=== PATIENT | female | born 1945 | race Caucasian/White ===

== ENCOUNTER 2024-10-29 10:00 | Inpatient (IN) | payer MEDICARE, OTHER ==
[~2024-10-29] VITALS: Ht 154.9 cm; Wt 74.5 kg
[2024-10-30 14:39] VITALS: BP 123/68
[2024-10-30] MEDS ORDERED: BAYER CHEWABLE81 MG PO (14:45)
[2024-10-30] MEDS ORDERED: EPIPEN 2-P0.3 MG/0.3 IM (14:46)
[2024-10-30] MEDS ORDERED: COREG3.125 MG PO (14:47)
[2024-10-30] MEDS ORDERED: MULTI VITAMIN1 EACH PO (14:47)
[2024-10-30] MEDS ORDERED: ATORVASTATIN CA80 MG PO (14:47)
[2024-10-30] MEDS ORDERED: LASIX20 MG PO (14:48)
[2024-10-30] MEDS ORDERED: LEVOTHYROXINE125 MCG PO (14:48)
[2024-10-30] MEDS ORDERED: GABAPENTIN ER600 MG PO (14:48)
[2024-10-30] MEDS ORDERED: OMEPRAZOLE20 MG PO (14:49)
[2024-10-30] MEDS ORDERED: PAXIL10 MG PO (14:49)
[2024-10-30] MEDS ORDERED: ZESTRIL5 MG PO (14:49)
[2024-10-30] MEDS ORDERED: TRIAMTERENE-HC1 EAC1 PO (14:50)
[2024-10-30] MEDS ORDERED: VITAMIN C500 M1 PO (14:50)
[2024-10-30] MEDS ORDERED: POTASSIUM CHLO10 MEQ PO (14:50)
[2024-10-30] MEDS ORDERED: VITAMIN D325 MCG PO (14:51)
[2024-11-03] VITALS (9 sets, daily range): BP systolic 125–153; BP diastolic 64–82
[2024-11-03] MEDS ORDERED: LACTATED RINGER'S 1,000 ML IV SCH (05:00)
[2024-11-03] MEDS ORDERED: MIDAZOLAM HCL 2 MG/2 ML VIAL ONE (05:57)
[2024-11-03] MEDS ORDERED: FAMOTIDINE 20 MG/ 2 ML VIAL ONE (05:57)
[2024-11-03] MEDS ORDERED: propofoL 200 MG/20 ML VIAL ONE (05:57)
[2024-11-03] MEDS ORDERED: fentaNYL citrate 100 MCG/2 ML VIAL ONE (05:57)
[2024-11-03] MEDS ORDERED: LACTATED RINGER'S 1,000 ML IV ONE ×2 (05:57→07:58)
[2024-11-03] MEDS ORDERED: DEXAMETHASONE SOD PHOS 4 MG/ML VIAL ONE (05:57)
[2024-11-03] MEDS ORDERED: KETAMINE in NS 50 MG/5 ML SYR ONE (05:57)
[2024-11-03] MEDS ORDERED: KETOROLAC TROMETHAMINE 30 MG/ML VIAL ONE (05:57)
[2024-11-03] MEDS ORDERED: ondansetron HCL 4 MG/2 ML VIAL ONE (05:57)
[2024-11-03] MEDS ORDERED: METOCLOPRAMIDE HCL 10 MG/2 ML SDV ONE (05:57)
[2024-11-03] MEDS ORDERED: LIDOCAINE HCL 2% 5 ML SDV ONE ×2 (05:59→08:02)
[2024-11-03] MEDS ORDERED: BUPIVACAINE 0.75% IN DEXTROSE 2 ML AMP ONE (05:59)
[2024-11-03] MEDS ORDERED: TRAMADOL HCL 50 MG TAB PO ONE (06:00)
[2024-11-03] MEDS ORDERED: CEFAZOLIN SODIUM 2 GM/20 ML SYR IV SCH ×2 (07:00→15:00)
[2024-11-03] MEDS ORDERED: TRANEXAMIC ACID IN NACL,ISO-OS 1,000 MG/100 ML PIGGYBACK IV SCH ×3 (07:00→18:00)
[2024-11-03] MEDS ORDERED: GABAPENTIN 600 MG TAB PO SCH (07:00)
[2024-11-03] MEDS ORDERED: IBLOOD GLUCOSE TEST STRIP 1 EA TEST VI PRN ×3 (07:00→08:45)
[2024-11-03] MEDS ORDERED: ondansetron HCL 4 MG TAB PO SCH (07:00)
[2024-11-03] MEDS ORDERED: KETOROLAC TROMETHAMINE 30 MG/ML VIAL IV PRN (07:00)
[2024-11-03] MEDS ORDERED: LIDOCAINE HCL 1% 5 ML SDV INJ ONE (07:00)
[2024-11-03] MEDS ORDERED: INTRA-ARTICULAR ANALGESIC INJECTION XX SCH (07:00)
[2024-11-03] MEDS ORDERED: PANTOPRAZOLE SODIUM 40 MG TABEC PO SCH (07:00)
[2024-11-03] MEDS ORDERED: OXYCODONE HCL 5 MG TAB PO SCH (07:00)
[2024-11-03] MEDS ORDERED: TRAMADOL HCL 50 MG TAB PO PRN (07:15)
--- NOTE | 2024-11-03 07:30 | NUR ---
PT NOT AVAILABLE FOR VISIT. PROVIDED PRAYER.
[2024-11-03] MEDS ORDERED: SEVOFLURANE 250 ML BTL ONE (08:22)
[2024-11-03] MEDS ORDERED: ondansetron HCL 4 MG/2 ML VIAL IV PRN ×2 (08:30→08:45)
[2024-11-03] MEDS ORDERED: PROCHLORPERAZINE EDISYLATE 10 MG/2 ML VIAL IV PRN ×2 (08:30→08:45)
[2024-11-03] MEDS ORDERED: NALOXONE HCL 0.4 MG SYR IV PRN ×2 (08:30→08:45)
[2024-11-03] MEDS ORDERED: METOCLOPRAMIDE HCL 10 MG/2 ML SDV IV PRN ×2 (08:30→08:45)
[2024-11-03] MEDS ORDERED: fentaNYL citrate 50 MCG/ML SDV IV PRN ×2 (08:30→08:45)
[2024-11-03] MEDS ORDERED: droPERidol 5 MG/2 ML VIAL IV PRN ×2 (08:30→08:45)
[2024-11-03] MEDS ORDERED: MORPHINE SULFATE 10 MG/ML VIAL IV PRN (08:30)
[2024-11-03] MEDS ORDERED: SCOPOLAMINE 1 MG/3 DAYS PATCH 1 EACH TDSY ONE (08:33)
[2024-11-03] MEDS ORDERED: MEPERIDINE HCL 25 MG/1 ML VIAL IV PRN (08:45)
[2024-11-03] MEDS ORDERED: ATROPINE SULFATE 1 MG/ML VIAL ONE (08:50)
[2024-11-03] MEDS ORDERED: ASPIRIN 325 MG TAB PO SCH (09:00)
[2024-11-03] MEDS ORDERED: CEFUROXIME250 MG PO (09:26)
[2024-11-03] MEDS ORDERED: GABAPENTIN300 MG PO (09:27)
[2024-11-03] MEDS ORDERED: ACETAMINOPHEN500 MG PO (09:27)
[2024-11-03] MEDS ORDERED: ASPIRIN325 MG PO (09:27)
[2024-11-03] MEDS ORDERED: CELECOXIB200 MG PO (09:27)
[2024-11-03] MEDS ORDERED: TRAMADOL HCL50 MG PO (09:27)
--- NOTE | 2024-11-03 09:30 | NUR ---
11/03/24 0930 Lissy Shafer PATIENT ARRIVES IN PACU NEEDING A JAW THRUST FOR ADEQUATE GAS EXCHANGE. JAW THRUST IS HELD BY ME UNTIL 09, THEN SNORING RESPIRATIONS ARE HEARD.
--- NOTE | 2024-11-03 09:56 | NUR ---
PT ARRIVES TO DS UNIT FROM PACU VIA STRETCHER. PT REPORTS NO PAIN AND NO NAUSEA. PT SPINAL AT KNEE LEVEL AND PT ABLE TO SLIGHTLY WIGGLE TOES ON LFT LEG. PT SITTING UP IN BED EATING PUDDING AND CRACKERS, TOLERATING SMALL SIPS OF ICE WATER WITHOUT DIFFICULTY. PT REPORTS NO FURTHER NEEDS OR QUESTIONS AT THIS TIME. REPORT RECEIVED FROM GEORGE ANGUIANO, AT BEDSIDE. CALL LIGHT WITHIN REACH. PT ON >90% VIA PULSE OX, PT DEMONSTRATES GOOD COUGHS. RESPIRATIONS EVEN AND UNLABORED, NO SIGNS OF DISTRESS.
--- NOTE | 2024-11-03 10:48 | OR ---
[facility] [address] [facility] [place], [place] [address] Signed DATE OF OPERATION: 11/03/2024 SURGEON: Crystal Stratton MD PREOPERATIVE DIAGNOSIS: Left hip degenerative joint disease. POSTOPERATIVE DIAGNOSIS: Left hip degenerative joint disease. PROCEDURE PERFORMED: Left total hip arthroplasty with Aldair. TEMPORARY RECEPTIONIST: None. ANESTHESIA: Spinal. BLOOD LOSS: 175 mL. IMPLANTS: Rome Secure-Fit Advanced size 7 stem, 52 mm cup and a +2.5 head, 3 screws were placed as well. BRIEF HISTORY: Ronda is an 79-year-old female with progressive worsening of pain and arthritis in her hip. She had undergone successful right hip and wished to proceed with the left. PROCEDURE IN DETAIL: Once consent was obtained, she was taken to the operating room. After adequate anesthesia, she was placed on the operating table in the right lateral decubitus position. Axillary roll was placed and downside pressure points were well padded. The leg was then prepped and draped in a standard sterile fashion. The three pins for the Aldair computer ray were then placed in the posterior aspect of the iliac crest. Once this was completed, the hip was approached through standard anterior lateral incision, this was carried through skin and subcutaneous tissue. The IT band was divided longitudinally. The vastus lateralis was then divided from the tip of the trochanter distally and elevated subperiosteally. This incision was then extended into the gluteus Electronically Signed By: CRYSTAL STRATTON MD 11/03/24 1048 PATIENT NAME: RONDA NOEL OPERATIVE REPORT DATE OF : 41 REPORT #: [id number] PHYSICIAN: CRYSTAL STRATTON MD PCP: OTHER PCP REPORT IS CONFIDENTIAL AND NOT TO BE RELEASED WITHOUT AUTHORIZATION [facility] [address] [place], [place] [address] Signed and capsule and taken all the way to the superior acetabular rim. This was then peeled off the anterior femur around to the level of the lesser trochanter. A partial capsulectomy was performed due to extensive thickening of the capsule throughout. The leg was then registered with the computer and the hip was dislocated. The femoral neck cut was made one fingerbreadth above the lesser trochanter. The bone was held on the back table. The bony landmarks were then registered with the computer. The robot was brought in and an initial ream was made; however, when we tried to put the cup in, it would not stick very well. She did have extremely poor bone. I then switched to manual reaming and reamed the cup deeper and more posterior. We then switched to a 52 cup, and we were able to get it to stick quite well. Three screws were then placed in the posterior superior quadrant. The acetabular liner was then impacted in position. Attention was turned to the proximal femur. This was opened using the impok cutter, followed by the Jerod awl. It was then sequentially reamed up to a 7 and broached up to a 7, which was found to be quite well fitting. The broach was left in place and initially a +0, then a +2.5 head were placed with good leg lengths and stability. Negative Shuck test. The hip was dislocated and the trial was removed. The final stem was impacted until it reached the same level. The +2.5 head was impacted on a dry trunnion. The hip was reduced, again taken to range of motion, 100 degrees of flexion with 30 of internal-external rotation with no impingement or instability. The wound was then copiously irrigated with Surgiphor and normal saline. The frandy-incisional soft tissues were injected with 80 mL of ropivacaine and Toradol mixture. The capsule was then closed using #2 FiberWire. The vastus and IT bands were closed independently using #2 StrataFix. The subcutaneous tissue with 0-StrataFix and skin with 3-0 StrataFix. The wound was then sealed with LiquiBand and Steri-Strips. The computer ray was removed and those wounds were cleansed and closed with Steri-Strips. The wounds were then dressed with Acticoat-7 dressings, and she was awakened and taken to the recovery room in satisfactory condition. All sponge, needle, and instrument counts correct. Crystal Stratton MD BA/MODL /[id number] Electronically Signed By: CRYSTAL STRATTON MD 11/03/24 1048 PATIENT NAME: RONDA NOEL OPERATIVE REPORT DATE OF : 41 REPORT #: [id number] PHYSICIAN: CRYSTAL STRATTON MD PCP: OTHER PCP REPORT IS CONFIDENTIAL AND NOT TO BE RELEASED WITHOUT AUTHORIZATION [address] [address] Signed Copies: ~ Electronically Signed By: CRYSTAL STRATTON MD 11/03/24 1048 PATIENT NAME: FRANCISCO JAVIER NOELVANDANA DIETZIE OPERATIVE REPORT DATE OF : 41 REPORT #: [id number] PHYSICIAN: CRYSTAL STRATTON MD PCP: OTHER PCP REPORT IS CONFIDENTIAL AND NOT TO BE RELEASED WITHOUT AUTHORIZATION
--- NOTE | 2024-11-03 11:10 | NUR ---
IN PT ROOM FOR VS AND ASSESSMENT. NO ACUTE CHANGES FROM PREVIOUS ASSESSMENT. PT REPORTS NO PAIN OR NAUSEA AT THIS TIME. PT ABLE TO MOVE LEGS AND WIGGLE TOES WITHOUT DIFFICULTY, SPINAL TO TOP OF FOOT AT THIS TIME. SANDWICH PROVIDED FOR LUNCH, HOB INCREASED TO 45 DEGREES. CALL LIGHT WITHIN REACH, AT BEDSIDE, PT REPORTS NO FURTHER NEEDS OR QUESTIONS AT THIS TIME.
--- NOTE | 2024-11-03 11:45 | NUR ---
FABIANO AND STUDENT W/PHYSICAL THERAPY IN ROOM W/PT AT THIS TIME.
--- NOTE | 2024-11-03 12:04 | NUR ---
PT HAD INCONTINENCE EPISODE OF LARGE AMOUNT IN BED. PT UNABLE TO URINE VOID ON TOILET AT THIS TIME. NEW GOWN IN PLACE, FULL BED CHANGE PERFORMED.
--- NOTE | 2024-11-03 12:40 | NUR ---
PT BACK FROM PHYSICAL THERAPY. MODERATE SIZED HEMATOMA ON LFT HIP AND MODERATE AMOUNT OF SATURATION TO SURGICAL DRESSING AT THIS TIME VISUALIZED. SANTIAGO FISHER CALLED AND UPDATED, VO FOR SPICA DRESSING AND ABD PADS RECEIVED. PT PASSED FIRST PART OF PHYSICAL THERAPY AND ABLE TO STAND WHILE THIS RN AND YUE RN PLACE SPICA DRESSING. PT HAD STEADY GAIT AND NO PAIN THROUGHOUT PROCESS. PT BACK IN BED W/CRYO CUFF, HEEL PROTECTORS, FOOT PUMPS, AND KELLY HOSE IN PLACE. CALL LIGHT WITHIN REACH. PHYSICAL THERAPY TO PERFORM SECOND PART OF PHYSICAL THERAPY W/TRUCK TRANSFER.
--- NOTE | 2024-11-03 13:25 | NUR ---
IN PT ROOM FOR VS AND ASSESSMENT POST PHYSICAL THERAPY. PT REPORTS NO PAIN OR NAUSEA. SPICA DRESSING IN PLACE AND NO VISIBLE SIGNS OF BLEEDING THROUGH DRESSING AT THIS TIME. PT STATES NO URGE TO URINE VOID AND NO FEELING OF SENSATION OF FULL BLADDER. BLADDER PHYSICALLY PALPABLE W/PROBE AT THIS TIME. BS SHOWS HIGHEST VOLUME OF 530 ML IN PT BLADDER. SANTIAGO FISHER CALLED AND UPATED, VO FOR STRAIGHT CATH OF PT AT THIS TIME. PT UPDATED ON PLAN OF CARE AND AGREEABLE AT THIS TIME. CALL LIGHT WITHIN REACH.
--- NOTE | 2024-11-03 13:40 | NUR ---
PT STATES URGE TO URINE VOID AT THIS TIME. PT MISSED HAT W/SMALL AMOUNT OF URINE OUTPUT AND SHE STATES SHE DOES NOT FEEL LIKE SHE WENT VERY MUCH. PT REPORTS PAIN IS STARTING TO INCREASE AT THIS TIME. GAIT REMAINS STEADY, BUT PT MOVING SLOWER AT THIS TIME. PT BACK IN BED AND BLADDER SCAN PERFORMED AT THIS TIME. BLADDER SCAN PERFORMED, AND VOLUME REMAINS >500 ML, BLADDER IS PALPABLE. STRAIGHT CATH PERFORMED BY LEWIS ANGUIANO, STERILITY MAINTAINED, 400 ML DRAINED FROM BLADDER AT THIS TIME. CALL LIGHT WITHIN REACH, AT BEDSIDE.
[2024-11-03] MEDS ORDERED: LIDOCAINE 2% VISCOUS 6 ML SYR TOP ONE (13:45)
--- NOTE | 2024-11-03 14:20 | NUR ---
IN PT ROOM FOR PAIN ENVIRONMENTAL AIDE. PT REPORTS PAIN 5/10 TO LATERAL AND MEDIAL ASPECT OF THIGH AND DESCRIBES IT CONSTANT. SCHEDULED TYLENOL AND GABAPENTIN GIVEN, ALONG W/PRN TRAMADOL. ANCEF GIVEN VIA IV. PT DRINKING ICE WATER WITHOUT DIFFICULTY. COFFEE PROVIDED TO PT AND PT , NEW CHAIR PROVIDED TO PT FOR COMFORT. BOTH PT AND STATE NO FURTHER NEEDS OR QUESTIONS AT THIS TIME. CALL LIGHT WITHIN REACH.
[2024-11-03] MEDS ORDERED: ACETAMINOPHEN 500 MG TAB PO SCH (15:00)
[2024-11-03] MEDS ORDERED: GABAPENTIN 300 MG CAP PO SCH (15:00)
--- NOTE | 2024-11-03 15:30 | NUR ---
IN PT ROOM TO REFILL WATER. PT STATES NO NEED TO URINE VOID AT THIS TIME. CALL LIGHT WITHIN REACH. AT BEDSIDE.
--- NOTE | 2024-11-03 16:40 | NUR ---
PT CONTINUES TO BE UNABLE TO URINE VOID. IN ROOM FOR VS AND ASSESSMENT. SPICA DRESSING REMAINS IN PLACE, NO NEW SIGNS OF BLEEDING THROUGH THIS DRESSING. DEPENDS IN PLACE, DRY. BLADDER SCAN VOLUME OF 286 ML. PT STATES SHE CONTINUES TO FEEL NO URGE AT THIS TIME. PAIN IS TOLERABLE AT 2/10 IN INFERIOR OF LFT HIP. SANTIAGO FISHER CALLED AND UPDATED. VO TO HOLD ASPIRIN TONIGHT, GIVE 2 GM OF TXA, AND TRANSFER PT TO MS FLOOR FOR EXTENDED RECOVERY. PT UPDATED AND AGREEABLE TO PLAN OF CARE. PT STATES NO FURTHER NEEDS OR QUESTIONS AT THIS TIME.
[2024-11-03] MEDS ORDERED: TRANEXAMIC ACID 2,000 MG in SODIUM CHLORIDE 0.9% 100 ML IV ONE (17:15)
--- NOTE | 2024-11-03 17:27 | NUR ---
PATIENT TO MED SURG VIA GURNEY. PATIENT WAS ABLE TO TRANSFER SELF TO [facility] VIA 1PA. SPIKA DRESSING IS IN PLACE. PATIENT IS ON ROOM AIR FOR 90-92%. HOME CPAP IS IN ROOM AND RT CALLED TO SET UP FOR PATIENT. REGULAR DINNER ORDERED FOR PATIENT. VITALS ARE STABLE. ICE IS PRESENT IN CRYO CUFF. PATIENT DENIES NEED TO VOID AT THIS TIME. PATIENT RATES PAIN 2/10 AND DENIES NEED FOR MEDICATIONS AT THIS TIME.
--- NOTE | 2024-11-03 18:05 | NUR ---
REPORT RECEIVED FROM ANNMARIE CHIN. IN TO INTRODUCE SELF AND CHECK ON PT. UPON INSPECTING HIP IT WAS FOUND TO BE SEEPING BLOOD. CHANGED GOWN AND REINFORCED WITH TOWEL UNTIL TALKING TO DR. CALLED, HE ORDERED SPICA DRESSING CHANGE AND ADMINISTERED TRANSX. HUNG BAGS WHILE ANNMARIE CHIN OBTAINED SUPPLIES. CHANGED DRESSING WO DIFFICULTY. ALL FOUR ABD WERE SATURATED. PT TOLERATED WELL. BACK TO BED WITH CRYO, FOOT PUMPS ETC IN PLACE. CALL LIGHT IN PLACE.
[2024-11-03] MEDS ORDERED: ONDANSETRON 4 MG TAB ODT SL PRN (19:15)
--- NOTE | 2024-11-03 19:20 | NUR ---
PER RN SCAN THE BLADDER AND SHOWED 218ML. RN NOTIFIED.
--- NOTE | 2024-11-03 19:45 | NUR ---
REPORT RECEIVED FROM CLIFF ANGUIANO. pt RESTING IN THE BED. pt BLADDER SCANNED WITH A RESULTS OF 218 mL. pt EDUCATED TO LET US KNOW IF SHE FEELS LIKE SHE HAS TO GO TO THE BR. pt DENIES ANY OTHER NEEDS AT THIS TIME. CALL LIGHT WITHIN REACH.
[2024-11-03] MEDS ORDERED: SENNOSIDES 1 TAB PO SCH (21:00)
[2024-11-03] MEDS ORDERED: carvediloL 3.125 MG TAB PO ONE (21:00)
--- NOTE | 2024-11-03 21:00 | NUR ---
ASSESSMENT AND VS DONE. pt NEEDED DUE TO VOID. THIS RN AND JACOBO BRANDT ASSISTED pt UP TO THE BSC WITH FWW. pt ABLE TO VOID. PRN AND SCHEDULED MEDS ADMINISTERED. pt BACK TO BED. SCD'S ON. KELLY HOSE ON. CRYO CUFF FILLED WITH ICE. pt C/O 5/10 PAIN. DRESSING ON HIP IS CDI. WATER REFRESHED. pt DENIES ANY OTHER NEEDS AT THIS TIME. CALL LIGHT WITHIN REACH.
[2024-11-03] MEDS ORDERED: PROCHLORPERAZINE MALEATE 10 MG TAB PO PRN (21:30)
--- NOTE | 2024-11-03 23:35 | NUR ---
pt C/O 04/30 PAIN AND NAUSEA. PRN PAIN AND ANTINAUSEA MEDS ADMINISTERED. pt DENIES ANY OTHER NEEDS AT THIS TIME. CALL LIGHT WITHIN REACH. pt RESPOSITIONED IN THE BED AND TOWELS PLACED UNDER pt ANKLES TO FLOAT HEELS.
[2024-11-04] VITALS (11 sets, daily range): BP systolic 111–137; BP diastolic 42–89
--- NOTE | 2024-11-04 02:38 | NUR ---
pt RESTING IN THE BED. DRESSING CDI. CRYO CUFF FILLED WITH ICE. SCD'S ON. KELLY HOSE ON. CPAP ON. WATER REFRESHED. pt DENIES ANY OTHER NEEDS AT THIS TIME. CALL LIGHT WITHIN REACH. VITAL SIGNS AND ASSESSMENT DONE.
--- NOTE | 2024-11-04 04:37 | NUR ---
IN TO CHECK ON pt AFTER THIS RN WAS CALLED INTO BY POOJA RN FOR ASSISTANCE. POOJA RN INFORMED THIS RN THAT pt HAD SMALL AMOUNT OF BRIGHT RED BLOOD ON THE FLOOR WHEN GETTING UP TO THE BSC. AND WHEN THIS RN LOOKED AT THE DRESSING 1 ABD PAD WAS SATURATED AND ANOTHER ONE WAS 50% SATURATED. SPIKA DRESSING STILL INTACT.
--- NOTE | 2024-11-04 05:57 | NUR ---
CALL PLACED TO MD ABOUT pt BLEEDING THROUGH 2 ABD PADS AND THE SPIKA DRESSING, THIS RN REINFORCED THE DRESSING WITH AN ABD PAD. NEW ORDERS GIVEN AND VERIFIED WITH REPEAT BACK METHOD.
[2024-11-04] MEDS ORDERED: TRANEXAMIC ACID 2,000 MG in SODIUM CHLORIDE 0.9% 100 ML IV ONE (06:00)
[2024-11-04 06:06] LABS: BASOPHILS 0.1 % (0-2); HEMATOCRIT 16.9 % (35.0-50.0); LYMPHOCYTES 15.3 % (24-44); MCH 33.6 (27-36); MCHC 35.1 g/dl (30-36); MCV 95.9 fl (81-99); MONOCYTES 9.5 % (0-12); NEUTROPHILS 75.1 % (39-80); PLATELET COUNT 249 K/uL (140-440); RBC 1.76 M/ul (4.3-5.7)
[2024-11-04 06:11] LABS: HEMOGLOBIN 5.9 g/dL (12.0-18.0)
--- NOTE | 2024-11-04 06:14 | NUR ---
CALL PLACED TO ABOUT pt CRITICAL LAB HGB 5.9. MD PLACED NEW ORDER FOR TYPE AND SCREEN WITH CROSS MATCH. VERIFIED WITH REPEAT BACK METHOD.
[2024-11-04 06:24] LABS: SMEAR REVIEW BLOOD SEE COMMENTS
[2024-11-04] MEDS ORDERED: TRANEXAMIC ACID IN NACL,ISO-OS 1,000 MG/100 ML PIGGYBACK IV SCH ×2 (06:30→07:00)
[2024-11-04 07:09] LABS: ABO A; ANTIBODY SCREEN NEGATIVE; IS CROSSMATCH COMPATIBLE; RH POSITIVE
[2024-11-04 07:09] LABS: ABO A; RH POSITIVE
--- NOTE | 2024-11-04 07:17 | NUR ---
REPORT FROM ANNMARIE MAI. DR. HENDERSON IS HERE TO SEE PATIENT. PATIENT TO HAVE CBC BEFORE BLOOD INFUSION.
[2024-11-04 07:31] LABS: BASOPHILS 0.3 % (0-2); HEMATOCRIT 17.4 % (35.0-50.0); LYMPHOCYTES 16.4 % (24-44); MCH 32.5 (27-36); MCHC 33.6 g/dl (30-36); MCV 96.6 fl (81-99); NEUTROPHILS 73.3 % (39-80); PLATELET COUNT 274 K/uL (140-440); RDW 12.8 (10.5-15.0)
[2024-11-04 07:34] LABS: HEMOGLOBIN 5.8 g/dL (12.0-18.0)
--- NOTE | 2024-11-04 07:34 | NUR ---
UR CLINICAL REVIEW: 2 MN FOR VERSALUS-MEETS INPT CRITERIA FOR POST OP COMPLICATION MEDICARE ORDER MATCHES REG NO AUTH REQUIRED PER MEDICARE GUIDELINES DISCHARGE NEEDS PENDING FURTHER EVALUATION
[2024-11-04 07:43] LABS: INR 1.05 (0.80-1.30); PROTIME 13.6 Sec (11.2-14.2)
--- NOTE | 2024-11-04 07:59 | NUR ---
PATIENT IN BED AT THIS TIME. PROFESSIONAL HOUSING CONSULTANT WENT INTO PATIENTS ROOM FOR HOURLY ROUNDS AND TO PLACED PUREWICK AT RN ELSY REQUEST. PROFESSIONAL HOUSING CONSULTANT PLACED PUREWCIK @ 4836. CALL LIGHT WITHIN REACH, NO FURTHER NEEDS A THIS TIME.
[2024-11-04] MEDS ORDERED: CELECOXIB 200 MG CAP PO SCH (08:00)
--- NOTE | 2024-11-04 08:16 | NUR ---
MORNING ASSESSMENT IS COMPLETE. NO BLEEDING TO LEFT HIP SPIKA DRESSING. PATIENT IS ON STRICT BED REST TODAY, PUREWICK IN PLACE. PATIENT IS WEARING HER CPAP, O2 SATS ARE 96%. VSS, PULSE IS 88. PATIENT GIVEN 8MG OF ZOFRAN ODT FOR NAUSEA. KELLY HOSE AND SCDS ARE ON, EXTREMITIES ARE WARM. PATIENT IS NPO AT THIS TIME, IS CASE SURGERY IS NEEDED. FIRST UNIT OF BLOOD STARTED AT 0800, NO S/S OF INFUSION REACTION. IS IN ROOM WITH PATIENT. PATIENT IS RESTING COMFORTABLE IN BED, RATES LEFT HIP PAIN 1/10 AND DOES NOT REQUEST PAIN MEDICATIONS.
[2024-11-04] MEDS ORDERED: cefuroxime axetiL 250 MG TAB PO SCH (09:00)
[2024-11-04] MEDS ORDERED: GABAPENTIN300 MG PO (09:14)
--- NOTE | 2024-11-04 09:16 | NUR ---
MED REC COMPLETE
--- NOTE | 2024-11-04 09:21 | NUR ---
PATIENT IS DOING WELL WITH BLOOD TRANSFUSION, NO REACTIONS NOTED.
--- NOTE | 2024-11-04 09:49 | NUR ---
ABD'S REMOVED FROM LEFT HIP SPIKA 1.5 ABD'S WERE SATURATED. 3 NEW ABD'S PLACED UNDER SPIKA DRESSING. CALL TO DR. HENDERSON
[2024-11-04] MEDS ORDERED: PANTOPRAZOLE SODIUM 40 MG TABEC PO SCH (10:00)
[2024-11-04] MEDS ORDERED: CEFAZOLIN SODIUM 2 GM/20 ML SYR IV SCH (10:00)
[2024-11-04] MEDS ORDERED: carvediloL 3.125 MG TAB PO SCH (10:00)
[2024-11-04] MEDS ORDERED: LEVOTHYROXINE SODIUM 125 MCG TAB PO SCH (10:00)
--- NOTE | 2024-11-04 10:14 | NUR ---
PT NOT AVAILABLE FOR VISIT. PROVIDED PRAYER.
--- NOTE | 2024-11-04 10:27 | NUR ---
IN ROOM TO SPEAK WITH PATIENT AND SPOUSE. SHE IS ALERT AND ORIENTED, BLOOD TRANSFUSION GOING AT THIS TIME. PATIENT LIVES IN HOUSE WITH , CHARLINE. PATIENT STATES MAIN LEVEL OF HOME HAS EVERYTHING THEY NEED, NO NEED TO USE STAIRS. PATIENT HAS A WALKER, CANE, SHOWER CHAIR, CPAP. UNSURE WHICH MEDICAL COMPAY PROVIDES CPAP, THINKS [place]. PATIENT RARELY DRIVES, SPOUSE ASSISTS WITH TRANSPORTATION. PATIENT AND SPOUSE DENY ISSUES WITH PAYING UTILITIES. THEY ARE ABLE TO OBTAIN FOOD AND MEDICATION WITHOUT ISSUES. CURRENTLY DO NOT HAVE ANY CM NEEDS AT HOME AT THIS TIME. WILL RETURN TO SPEAK WITH PATIENT AGAIN REGARDING DC PLANS.
--- NOTE | 2024-11-04 10:28 | NUR ---
PATIENT IN BED AT THIS TIME. INJECTION MOLDING OPERATOR CHARTED VITALS AND I&O'S. CALL LIGHT WITHIN REACH, NO FURTHER NEEDS AT THIS TIME.
--- NOTE | 2024-11-04 10:35 | NUR ---
PATIENT IS RESTING IN BED, PATIENT RATES LEFT HIP PAIN LOW 1/10 WITH NO ACTIVITY. PATIENT IS TOLERATING BLOOD TRANSFUSION WELL, SECOND UNIT IS TRANSFUSING AT THIS TIME. VITALS ARE STABLE, PULSE REMAINS IN THE MID 80'S
--- NOTE | 2024-11-04 11:57 | NUR ---
BLOOD INFUSION IS COMPLETE. LEFT HIP DRAINAGE CHECKED, SMALL AMOUNT OF BLOOD HAS LEAKED FROM UNDER DRESSING, 2"X2" IN TWO AREAS
--- NOTE | 2024-11-04 12:08 | NUR ---
ADMINISTERED ANCEF AND COREG WITH TINY SIP OF WATER. PT TOLERATED WELL. DENIES NEEDS ATT.
--- NOTE | 2024-11-04 13:04 | NUR ---
CALL FROM DR. HENDERSON, WE WILL DO 3PM LABS, CHECK BLEEDING TO LEFT HIP, CALL HIM WITH UPDATES.
--- NOTE | 2024-11-04 13:36 | NUR ---
PATIENT IN BED AT THIS TIME. BACK OFFICE MEDICAL ASSISTANT CHARTED VITALS AND I&O'S. CALL LIGHT WITHIN REACH, NO FURTHER NEEDS AT THIS TIME.
[2024-11-04 15:18] LABS: BASOPHILS 0.3 % (0-2); EOSINOPHILS 0.1 % (0-6); HEMATOCRIT 24.5 % (35.0-50.0); HEMOGLOBIN 8.6 g/dL (12.0-18.0); LYMPHOCYTES 12.6 % (24-44); MCH 31.8 (27-36); MCHC 35.2 g/dl (30-36); MCV 90.3 fl (81-99); MONOCYTES 10.4 % (0-12); NEUTROPHILS 76.6 % (39-80); PLATELET COUNT 241 K/uL (140-440); RBC 2.71 M/ul (4.3-5.7); RDW 15.7 (10.5-15.0)
--- NOTE | 2024-11-04 15:48 | NUR ---
CALL TO DR. HENDERSON WITH H/H RESULTS. PATIENT MAY HAVE REGULAR DIET FOR DINNER. MORNING LABS ORDERED: CBC, CMP. DR. HENDERSON WILL SEE PATIENT THIS EVENING.
--- NOTE | 2024-11-04 17:27 | NUR ---
PATIENT IS SITTING UP IN BED AND VISITING WITH FRIEND. PAIN IS 1/10, SCHEDULED MEDICATIONS GIVEN.
--- NOTE | 2024-11-04 18:54 | NUR ---
CALL TO DR. HENDERSON FOR MECLAZINE ORDER. UPDATED ADDITIONAL ABD PLACED UNDER SPIKA AFTER ROLLING PATIENT.
--- NOTE | 2024-11-04 18:58 | NUR ---
PATIENT IN BED AT THIS TIME. SUPERVISOR CLEANING AND ANNEALING CHARTED VITALS AND I&O'S. 2 CNAS AND 2 RNS IN ROOM AT THIS TME. RN PLACED PATIENTS NEW PUREWICK AND SUPERVISOR CLEANING AND ANNEALING PROVIDED NEW BRIEF. CALL LIGHT WITHIN REACH, NO FURTHER NEEDS AT THIS TIME.
--- NOTE | 2024-11-04 19:15 | NUR ---
REPORT RECEIVED FROM ELSY ANGUIANO. pt RESTING IN THE BED. BOARD UPDATED. pt DENIES ANY OTHER NEEDS AT THIS TIME. CALL LIGHT WITHIN REACH.
[2024-11-04] MEDS ORDERED: MECLIZINE HCL 25 MG TAB PO SCH (21:00)
[2024-11-04] MEDS ORDERED: PARoxetine HCL 10 MG TAB PO SCH (21:00)
[2024-11-04] MEDS ORDERED: ATORVASTATIN 40 MG TAB PO SCH (21:00)
--- NOTE | 2024-11-04 21:15 | NUR ---
ASSESSMENT AND VITAL SIGNS DONE. pt LINNEN WAS CHANGED. LEFT HIP ABD PAD SATURTED WITH OLD DRAINAGE. NO NEW DRAINGE AT THIS TIME. DRESSING REINFORCED. CPAP ON. pt DENIES ANY OTHER NEEDS AT THIS TIME. SCD'S ON. KELLY HOSE ON. CALL LIGHT WITHIN REACH.
[2024-11-05] VITALS (8 sets, daily range): BP systolic 100–126; BP diastolic 32–49
--- NOTE | 2024-11-05 00:11 | NUR ---
pt RESTING IN THE BED WITH EYES CLOSED. RR EVEN AND UNLABORED. CALL LIGHT WITHIN REACH.
--- NOTE | 2024-11-05 01:55 | NUR ---
PER RN PATIENT'S BLADDER SCANNED. 513ML IN. RN NOTIFIED.
--- NOTE | 2024-11-05 02:00 | NUR ---
IN RM TO ASSESS pt. pt HAS SMALL AMOUNT OF BLOOD ON THE DRESSING. pt BLADDER SCANNED WITH A RESULTS OF 513 mL. pt ENCOURAGED TO TRY AND PEE. pt DENIES ANY OTHER NEEDS AT THIS TIME. CALL LIGHT WITHIN REACH.
--- NOTE | 2024-11-05 02:51 | NUR ---
IN RM TO CHECK IF pt WAS ABLE TO PEE. pt PEED 200 mL IN THE PURE/WICK CANISTER. NO OTHER NEEDS AT THIS TIME. CALL LIGHT WITHIN REACH.
--- NOTE | 2024-11-05 04:10 | NUR ---
pt RESTING IN THE BED WITH EYES CLOSED. RR EVEN AND UNLABORED. CALL LIGHT WITHIN REACH. CPAP ON. CRYO CUFF ON. SCD'S ON. KELLY HOSE ON.
[2024-11-05 05:37] LABS: BASOPHILS 0.5 % (0-2); EOSINOPHILS 0.2 % (0-6); HEMATOCRIT 19.1 % (35.0-50.0); HEMOGLOBIN 6.7 g/dL (12.0-18.0); LYMPHOCYTES 22.8 % (24-44); MCHC 34.9 g/dl (30-36); MCV 91.4 fl (81-99); MONOCYTES 15.1 % (0-12); NEUTROPHILS 61.4 % (39-80); PLATELET COUNT 198 K/uL (140-440); RBC 2.09 M/ul (4.3-5.7); RDW 15.4 (10.5-15.0)
[2024-11-05 05:51] LABS: SMEAR REVIEW BLOOD SEE COMMENTS
[2024-11-05 05:54] LABS: ALBUMIN 2.5 g/dL (3.4-5.0); ANION GAP 8.1 (7-21); BILIRUBIN, TOTAL 0.5 ng/dL (0.2-1.0); CALCIUM 7.9 mg/dL (8.5-10.1); POTASSIUM 4.1 mmol/L (3.5-5.1)
--- NOTE | 2024-11-05 06:26 | NUR ---
NEW PURE WICK PLACED. CRYO CUFFED FILLED. NO NEW DRAINAGE ON DRESSING. SCDS ON. KELLY HOSE ON. pt DENIES ANY OTHER NEEDS AT THIS TIME. CALL LIGHT WITHIN REACH.
[2024-11-05 08:07] LABS: IS CROSSMATCH COMPATIBLE
[2024-11-05] MEDS ORDERED: POTASSIUM CHLORIDE 10 MEQ TABCR PO SCH (09:00)
[2024-11-05] MEDS ORDERED: lisinopriL 5 MG TAB PO SCH (09:00)
[2024-11-05] MEDS ORDERED: CHOLECALCIFEROL 1,000 UNIT TAB PO SCH (09:00)
[2024-11-05] MEDS ORDERED: ASCORBIC ACID 500 MG TAB PO SCH (09:00)
[2024-11-05] MEDS ORDERED: MULTIVITAMINS THERAPEUTIC 1 EA TAB PO SCH (09:00)
[2024-11-05] MEDS ORDERED: TRIAMTERENE/HCTZ 37.5/25 1 EA TAB PO SCH (09:00)
[2024-11-05] MEDS ORDERED: FUROSEMIDE 20 MG TAB PO SCH (09:00)
--- NOTE | 2024-11-05 09:29 | NUR ---
DR HENDERSON IN CHANGING PT'S DRESSING. DR HENDERSON ORDERS ASPIRIN TO BE HELD AT THIS TIME.
--- NOTE | 2024-11-05 10:03 | NUR ---
STOOD PT AT BEDSIDE, DID A QUICK BEDBATH, APPLIED SPICA DRESSING WO DIFFUCULTY. PT WAS EXCITED TO BE STANDING BRIEFLY. STATES SHE CAN'T BELIEVE SHE ISN'T HAVING MUCH PAIN. CHANGED BEDDING. 1ST UNIT BLOOD INFUSING WNL. VS STABLE.
--- NOTE | 2024-11-05 11:24 | NUR ---
PATIENT ALERT AND ORIENTED IN BED. CURRENTLY HAS BLOOD PRODUCTS TRANSFUSING. DISCUSSED WITH PATIENT SHE REMAINS ON BEDREST AT THIS TIME. INFORMED HER THAT ONCE SHE IS CLEARED TO WORK WITH PT, CASE MANAGEMENT WILL BETTER KNOW WHAT HER DC NEEDS ARE. SHE CAN NOT THINK OF ANY AT THIS TIME. WILL RETURN TOMORROW TO REVIEW DC NEEDS WITH PATIENT.
--- NOTE | 2024-11-05 11:57 | NUR ---
STARTED SECOND UNIT OF BLOOD TODAY. PT TOLERATING WELL. VS STABLE. IV WNL.
--- NOTE | 2024-11-05 12:06 | NUR ---
Charlie on bed changed. Purewick removed, patient is now able to get up to the commode. RNs Delmi and Alanis in room. Cryo cuff refilled with ice and applied to patient's left hip.
--- NOTE | 2024-11-05 12:26 | NUR ---
PT RESTING IN BED, JUST FINISHED LUNCH. COMPANY AT BEDSIDE. BLOOD INFUSING WITHOUT DIFFICULTY. PT HAS NO REQUESTS OR COMPLAINTS AT THIS TIME. CALL LIGHT WITHIN REACH.
--- NOTE | 2024-11-05 13:49 | NUR ---
PT SECOND UNIT COMPLETE. PT TOLERATED WELL. VS STABLE. WOULD LIKE TO NAP NOW. CALL LIGHT IN REACH.
--- NOTE | 2024-11-05 13:54 | NUR ---
ANNMARIE Awad in room finishing blood transfusion. Patient requested to not be disturbed so they could rest.
--- NOTE | 2024-11-05 15:01 | NUR ---
PT UP TO USE THE BEDSIDE COMMODE, TOLERATED WELL. DRSG TO L) HIP CDI. SCDS ON, CRYOCUFF ON, PT DENIES PAIN AT THIS TIME. CALL LIGHT WITHIN REACH, NO OTHER REQUESTS AT THIS TIME.
--- NOTE | 2024-11-05 18:09 | NUR ---
PT RESTING IN BED WATCHING TV, JUST FINISHED DINNER. PT'S WATER REFRESHED. NO OTHER REQUESTS AT THIS TIME. CALL LIGHT WITHIN REACH.
--- NOTE | 2024-11-05 19:31 | NUR ---
REPORT RECEIVED FROM ANNMARIE SOLORZANO. pt RESTING IN BED AWAKE. REPOSITIOND HIGHER IN BED. CRYO CUFF REFILLED WITH ICE AND IN PLACE. pt DENIES PAIN. CALL LIGHT IN REACH.
--- NOTE | 2024-11-05 20:19 | NUR ---
PHONE CALL TO MD, TELEPHONE ORDER RECEIVED FOR AM CBC. ORDER REPEATED BACK TO VERIFY AND UPDATED.
--- NOTE | 2024-11-05 20:57 | NUR ---
IN ROOM FOR VS, ASSESSMENT COMPLETE. DRESSING CDI ON LEFT HIP, NO DRAINAGE NOTED ON SPICA DRESSING. 1PA WITH FWW TO BSC FOR VOID AND SMALL FORMED BM. BACK TO BED, KELLY BRIGGS, VFPS ON, CRYO TO LEFT HIP. HOME CPAP PROVIDED. pt DENIES PAIN. CALL LIGHT AND PERSONAL SUPPLIES IN REACH. IV SL WNL.
[2024-11-06] VITALS (7 sets, daily range): BP systolic 103–119; BP diastolic 32–42
--- NOTE | 2024-11-06 00:01 | NUR ---
CHECKED ON pt. RESTING IN BED WITH EYES CLOSED, BREATHING EQUAL AND UNLABORED. NO DISTRESS NOTED.
--- NOTE | 2024-11-06 02:40 | NUR ---
pt SLEEPING, AWAKENS TO VOICE FOR ANTIBIOTIC ADMINISTRATION. CRYO CUFF REFILLED WITH ICE AND IN PLACE. DRESSING CDI ON LEFT HIP. CRYO IN PLACE. CSM INTACT BLE. HOME CPAP ON. pt DENIES ANY NEEDS. CALL LIGHT IN REACH.
--- NOTE | 2024-11-06 04:36 | NUR ---
pt RESTING IN BED WITH EYES CLOSED. HOME CPAP ON. BREATHING EQUAL AND UNLABORED. NO DISTRESS NOTED.
[2024-11-06 05:24] LABS: BASOPHILS 0.4 % (0-2); EOSINOPHILS 1.6 % (0-6); HEMATOCRIT 24.4 % (35.0-50.0); HEMOGLOBIN 8.5 g/dL (12.0-18.0); LYMPHOCYTES 17.3 % (24-44); MCHC 34.8 g/dl (30-36); MONOCYTES 12.6 % (0-12); NEUTROPHILS 68.1 % (39-80); PLATELET COUNT 192 K/uL (140-440); RBC 2.66 M/ul (4.3-5.7); RDW 15.2 (10.5-15.0)
--- NOTE | 2024-11-06 06:45 | NUR ---
pt SLEEPING, AWAKENS TO VOICE. VS COMPLETE, STABLE. DRESSING CDI LEFT HIP. 1PA WITH FWW TO BSC FOR VOID AND BACK TO BED, ASSISTANCE GETTING LEGS IN AND OUT OF BED. VFPs ON. CRYO CUFF REFILLED WITH ICE AND IN PLACE. TOOTHBRUSH AND MOUTH WASH PROVIDED, pt COVERING HEAD WITH BLANKETS, CPAP ON.
--- NOTE | 2024-11-06 07:15 | NUR ---
REPORT RECEIVED FROM LABORER CHICKEN [employer]ARM RN. PATIENT RESTING IN BED, RESPIRATIONS EVEN AND UNLABORED. CALL LIGHT WITHIN REACH.
[2024-11-06] MEDS ORDERED: CELECOXIB 200 MG CAP PO SCH (08:00)
--- NOTE | 2024-11-06 08:30 | NUR ---
PATIENT RESTING IN BED FINISHING BREAKFAST. AM MEDICATIONS ADMINSTERED. PATIENT VSS. DENIES ANY PAIN OR DISCOMFORT AT THIS TIME. SPICA DRESSING REMAINS IN PLACE WITH NO NOTED SHADOWING TO DRESSING. CRYO CUFF IN PLACE TO LEFT HIP. NOTED EDEMA TO LLE +1. KELLY HOSE AND FOOT PUMPS IN PLACE TO BLLE. POSITIVE CMS TO BLLE. LUNGS CTA, BOWEL TONES ACITVE X 4 QUADRANTS. DENIES ANY NEEDS AT THIS TIME. CALL LIGHT WITHIN REACH.
[2024-11-06] MEDS ORDERED: cefuroxime axetiL 500 MG TAB PO SCH (09:00)
--- NOTE | 2024-11-06 09:30 | NUR ---
PT IN WITH PATIENT AT THIS TIME.
--- NOTE | 2024-11-06 09:51 | NUR ---
VISITED DURING SPIRITUAL CARE ROUNDS. PT IN OVERALL GOOD SPIRITS, DENIED IMMEDIATE NEEDS. [facility] PROVIDED SUPPORTIVE PRESENCE, HOWPITALITY, PRAYER, FACILITATED INTERACTION WITH THERAPY ANIMAL. PT EXPRESSED GRATITUDE, HOPE.
--- NOTE | 2024-11-06 10:37 | NUR ---
IN TO ROUND ON PATIENT. OT IN ROOM WITH PATIENT AT THIS TIME. DENIES ANY NEEDS. CALL LIGHT WITHIN REACH.
--- NOTE | 2024-11-06 11:00 | NUR ---
INTO SEE PATIENT. PATIENT IS ALERT AND ORIENTED SITTING UP IN CHAIR. PATIENT STATES "I GOT TO WORK WITH PT/OT TODAY IT FELT SO GOOD TO GET OUT OF BED." PATIENT HAVING LOW BLOOD PRESSURES. DENIES ANY SYMPTOMS WHILE TALKING WITH ME. NOTIFIED ANNMARIE BARBOZA. PATIENT DOES NOT NEEDS ANYTHING FROM CASE MANAGEMENT AT THIS TIME. WILL CONTINUE TO FOLLOW.
--- NOTE | 2024-11-06 11:22 | NUR ---
MD HENDERSON CONTACTED VIA TELEPHONE. CONCERNS FOR SODIUM LABS FROM 11/05/24 WITH NO REDRAW THIS AM. WOULD NOT LIKE SODIUM REHECKED THIS DAY.
--- NOTE | 2024-11-06 11:45 | NUR ---
PATIENT ASSISTED TO BSC WITH FWW AND 1 PA ASSIST. VOID OF 400MLS. PATIENT TOLLERATED TRANSFER WELL. SPICA DRESSING TO LEFT HIP REMAINS CDI. PATIENT DENIES ANY PAIN AT THIS TIME. ASSISTED BACK TO RECLINER. CRYO CUFF IN PLACE TO LEFT HIP. FEET ELEVATED, KELLY HOSE IN PLACE. NO FURTHER NEEDS AT THIS TIME. CALL LIGHT WITHIN REACH.
--- NOTE | 2024-11-06 12:35 | NUR ---
PATIENT RESTING IN RECLINER. TALKING ON PHONE. NO NEEDS AT THIS TIME. CALL LIGHT WITHIN REACH.
--- NOTE | 2024-11-06 13:10 | NUR ---
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
--- NOTE | 2024-11-06 14:30 | NUR ---
IN TO ROUND ON PAITENT. PATIENT UP TO BATHROOM WITH ASSOCIATE DRAFTER STAFF. AMBULATING WELL WITH 1 PA ASSIST AND FWW. NO FURTHER NEEDS AT THIS TIME.
--- NOTE | 2024-11-06 15:45 | NUR ---
IN TO ROUND ON PATIENT. PATIENT REPORTS THAT SHE IS FEELING " VERY GOOD". WAS ABLE TO WALK INTO BATHROOM WITH NO ISSUES. " SURPRISED AT HOW WELL I AM FEELING." CONTINUES TO DENY PAIN AT THIS TIME. NO FURTHER NEEDS. FRESH ICE WATER GIVEN. CALL LIGHT WITHIN REACH.
--- NOTE | 2024-11-06 16:05 | NUR ---
PATIENT RESTING IN BED WATCHING TV. MEDICATIONS ADMINSTERED. DENIES ANY PAIN OR DISCOMFORT AT THIS TIME. FRESH ICE WATER GIVEN. SPICA DRESSING REMAINS INTACT WITH NO NOTED SHADOWNING. CRYO CUFF IN PLACE. PATIENT WITH NO FURTHER NEEDS AT THIS TIME. CALL LIGHT WITHIN REACH.
--- NOTE | 2024-11-06 17:15 | NUR ---
PATIENT SITTING UP IN BED EATING DINNER. PATIENT DENIES ANY PAIN AT THIS TIME. SPICA DRESSING REMAINS CDI. CRYO CUFF REFILLED WITH FRESH ICE AND WATER. KELLY HOSE AND FOOT PUMPS REMAIN IN PLACE. PATIENT REQUESTING CRANBERRY JUICE. JUICE GIVEN. NO FURTHER NEEDS AT THIS TIME. CALL LIGHT WITHIN REACH.
--- NOTE | 2024-11-06 18:15 | NUR ---
IN TO ROUND ON PATIENT. DENIES ANY NEEDS AT THIS TIME. CALL LIGHT WITHIN REACH.
--- NOTE | 2024-11-06 19:37 | NUR ---
RECEIVED REPORT FROM ANNMARIE BARBOZA. PT RESTING IN BED. LEFT HIP SPICA DRSG CDI. CRYOCUFF IN PLACE. DENIES NEEDS OR CONCERNS AT THIS TIME.
--- NOTE | 2024-11-06 20:30 | NUR ---
PT RESTING COMFORTABLE IN BED. VSS, B/P SOFT, HS DOSE COREG HELD. DENIES PAIN. LSC. HRR. BTA. VOIDS WNL. LBM 11/06. CMS INTACT. 2+ EDEMA TO LEFT HIP, CRYOCUFF IN PLACE. LEFT HIP SPICA DRSG CDI. CMS INTACT. PT HAS SCD'S AND KELLY HOSE TO BLE. RW SL WNL. LARGE LEFT ARM BRUISE STABLE. PT PROVIDED CRANBERRY JUICE PER REQUEST. ASSISTED TO EOB TO USE BR. JACOBO MERRITT IN ROOM TO ASSIST W/ BR USE.
--- NOTE | 2024-11-06 20:53 | NUR ---
REPORT SPECIALIST AND PRIMARY RN IN ROOM. VITALS AND I&O OBTAINED. PT NEEDED TO USE BATHROOM. RN 1PA TO BATHROOM WITH FWW. REPORT SPECIALIST REFILLED CRYO CUFF. PT VOIDED AND HAD BM. REPORT SPECIALIST ASSISTED PT BACK TO BED. SCDS AND CRYO CUFF BACK IN PLACE. REPORT SPECIALIST ASSISTED PT WITH PUTTING ON CLEAN GOWN. PT STATES NO FURTHER NEEDS AT THIS TIME. CALL LIGHT WITHIN REACH.
--- NOTE | 2024-11-06 21:30 | NUR ---
C-PAP AT BEDSIDE, ASSISTED PT TO START MACHINE, PT ABLE TO MANAGE NASAL PILLOW PLACEMENT.
[2024-11-07] VITALS (10 sets, daily range): BP systolic 109–133; BP diastolic 34–56
--- NOTE | 2024-11-07 00:14 | NUR ---
PT SLEEPING SOUNDLY, APPEARS COMFORTABLE. CALL LIGHT WITHIN REACH.
--- NOTE | 2024-11-07 02:19 | NUR ---
PT SLEEPING SOUNDLY. APPEARS COMFORTABLE.
--- NOTE | 2024-11-07 04:28 | NUR ---
PT SLEEPING SOUNDLY. APPEARS COMFORTABLE.
--- NOTE | 2024-11-07 06:31 | NUR ---
PT AWAKE, USED BR W/ PEARL DIGGER. DENIES PAIN. CMS INTACT. DRSG TO LEFT HIP CDI. DENIES ANY NEEDS AT THIS TIME.
--- NOTE | 2024-11-07 07:20 | NUR ---
REPORT RECEIVED FROM RAUDEL WOLFF RN. THIS RN IN WITH STUDENT NURSE AND INDUSTRIAL ECONOMICS PROFESSOR RN. PATIENT RESTING IN BED. DENIES ANY PAIN AT THIS TIME. CPAP IN PLACE. DRESSING TO LEFT HIP REMAINS CDI. PATIENT DENIES ANY NEEDS AT THIS TIME. CALL LIGHT WITHIN REACH.
--- NOTE | 2024-11-07 07:36 | NUR ---
STUDENT NURSE IN ROOM WITH PRIMARY NURSE. RECEIVED END OF SHIRT REPORT FROM COMMERCIAL SEWING INSTRUCTOR NURSE. PATIENT RESTING COMFORTABLY IN BED. CPAP IN USE AT THIS TIME. COMMERCIAL SEWING INSTRUCTOR RN AND DAY SHIFT RN ASSESSED LEFT HIP DRESSING. SCDS FUNCTIONING APPROPRIATELY. PATIENT DENIES PAIN AT THIS TIME. CALL LIGHT IN REACH.
--- NOTE | 2024-11-07 08:24 | NUR ---
PATIENT RESTING IN BED EATING BREAKFAST. DENIES ANY PAIN TO LEFT HIP. DRESSING REMAINS CDI. CRYOCUFF IN PLACE TO LEFT HIP. KELLY HOSE IN PLACE TO BLLE, SCDS IN PLACE TO BILAT FEET. LUNG SOUNDS CTA, HEART SOUNDS REGULAR. BOWEL TONE ACITVE X 4 QUADRANTS. IV SITE PATENT AND WNL. PATIENT OOB TO AMBULATE TO BATHROOM. TOLLERATED WELL WITH FWW. PATIENT BACK IN BED. NO FURTHER NEEDS CALL LIGHT WITHIN REACH.
--- NOTE | 2024-11-07 09:45 | NUR ---
PT NOT AVAILABLE FOR VISIT. PROVIDED PRAYER.
--- NOTE | 2024-11-07 09:50 | NUR ---
PATIENT WORKING WITH PT.
--- NOTE | 2024-11-07 10:15 | NUR ---
PATIENT CONTINUES WORKING WITH PT AT THIS TIME. AMBULATING IN HALLS.
--- NOTE | 2024-11-07 11:50 | NUR ---
INTO SEE PATIENT. PATIENT SITTING UP IN CHAIR. ALERT AND ORIENTED. PATIENT WAS HAPPY WITH WORKING WITH PT. SHE IS AWARE THAT SHE IS WEAK.SHE STATES "I COULD BARELY GET MY LEG UP THE STAIRS." PATIENT AWARE SHE WILL BE STAYING A FEW MORE DAYS TO WORK WITH PT. PATIENT LIVES AT HOME WITH HER WHO SHE WILL BE GOING HOME AT DISCHARGE. SHE STATES HE IS IN GOOD HEALTH AND WOULD BE ABLE TO TAKE CARE OF HER. DR. HENDERSON IN THE ROOM TO SEE PATIENT. PLANS TO KEEP HER THROUGH SUNDAY AT THIS TIME. IMM LETTER COMPLETE AT 11:45.
--- NOTE | 2024-11-07 12:30 | NUR ---
ROUNDING ON PATIENT. DENIES ANY NEEDS AT THIS TIME. PATIENT UP IN RECLINER, EATING LUNCH. CALL LIGHT WITHIN REACH.
--- NOTE | 2024-11-07 13:40 | NUR ---
PATIENT ASSISTED TO BATHROOM. SPICA DRESSING REINFORCED. NO NEW DRAINAGE NOTED TO SURGICAL DRESSING ABD PADS NOTED WITH OUT DRAINAGE NOTED. PATIENT ASSISTED INTO BED. CRYO CUFF REFILLED AND IN PLACE. KELLY HOSE IN PLACE, SCDS ON TO FEET. CALL LIGHT WITHIN REACH.
--- NOTE | 2024-11-07 14:48 | NUR ---
IN TO ADMINSTER SCHEDULED MEDICATIONS. PATIENT DENIES ANY PAIN. NO FURTHER NEEDS CALL LIGHT WITHIN REACH.
--- NOTE | 2024-11-07 15:30 | NUR ---
IN TO ROUND ON PATIENT DENIES ANY NEEDS AT THIS TIME. CALL LIGHT WITHIN REACH.
--- NOTE | 2024-11-07 15:30 | NUR ---
STOOD BY WHILE PATIENT GOT OUT OF BED THAN WE BOTH WALKED INTO HER BATHROOM. PATIENT USED HER WALKER. AFTER SHE WAS DONE GOING TO THE BATHROOM PATIENT WALKED OVER TO HER SINK AND SAT DOWN ON HER SHOWER CHAIR. I FILLED UP ONE OF HER SOLARES BASIN AND PUT SOAP AND WARM WATER IN IT. AND GAVE HER SOME WASH CLOTHS AND HAND TOWEL TO DRY WITH. THE ONLY THING I HELPED HER WITH WAS WASHING HER BACK AND DRYING IT. PATIENT SHAMPOODED HER HAIR WITH THE SHOWER CAP NON RINSE. BED LINENS WERE CHANGED.
--- NOTE | 2024-11-07 16:11 | NUR ---
SCHEDULED MEDICATIONS ADMINSTERED. PATIENT RESTING IN BED. DENIES ANY NEEDS. CALL LIGHT WITHIN REACH.
--- NOTE | 2024-11-07 17:45 | NUR ---
EXTRACTIVE METALLURGIST STAFF IN ROOM OBTAINING VITALS AT THIS TIME. PATIENT DENIES ANY NEEDS.
--- NOTE | 2024-11-07 18:11 | NUR ---
MD HENDERSON CONTACTED REGUARDING REPEAT LABS. DOES NOT WANT REPEAT LABS ORDERED.
--- NOTE | 2024-11-07 18:57 | NUR ---
BROUGHT PATIENT A SNACK AND CRANBERRY JUICE. ALSO FILLED HER CRYO.
--- NOTE | 2024-11-07 19:21 | NUR ---
RECEIVED REPORT FROM ANNMARIE BRABOZA. PT RESTING IN BED W/O COMPLAINTS. CALL LIGHT WITHIN REACH.
--- NOTE | 2024-11-07 20:30 | NUR ---
PT RESTING IN BED COMFORTABLY. DENIES PAIN. VSS, B/P IMPROVED. LSC. HOME C-PAP AT BEDSIDE. HRR. BTA. LBM TODAY. VOIDS WNL. CMS INTACT. LLE PLANTAR/DORSI MS STRONG. TEDS AND SCD'S TO BLE. LEFT HIP SPICA DRSG CDI. LEFT ARM BRUISING. HS MEDS ADMINISTERED PER EMAR. SL RW WNL. CALL LIGHT WITHIN REACH.
--- NOTE | 2024-11-07 21:30 | NUR ---
PT ASSISTED TO BR, SBA W/ FWW. GAIT STEADY. VOIDS WNL AND HAD BM. ASSISTED BACK TO BED. ALL PERSONAL BELONGINGS AND CALL LIGHT WITHIN REACH. C-PAP AVAILABLE AT BEDSIDE, PT CAN APPLY INDEPENDENTLY.
--- NOTE | 2024-11-07 23:00 | NUR ---
PT SLEEPING SOUNDLY. APPEARS COMFORTABLE.
[2024-11-08] VITALS (10 sets, daily range): BP systolic 113–127; BP diastolic 43–58
--- NOTE | 2024-11-08 02:28 | NUR ---
call light answered, pt up sba with fww to bathroom and voided 500mls and partial unmeasured void along with bm x1. pt completed own frandy care and ambulated back to bed, steady on feet. cryocuff to left hip and bilateral foot scd's in place. new ice to cyrocuff. no additional needs or concerns verbalized, call light in reach.
--- NOTE | 2024-11-08 03:24 | NUR ---
PT SLEEPING SOUNDLY. C-PAP IN PLACE.
--- NOTE | 2024-11-08 05:56 | NUR ---
PATIENT IS RESTING IN BED. VITALS TAKEN AND RECORDED. INTAKE AND OUTPUT RECORDED. PATIENT DENIES ANY PAIN. PATIENTS CRYO HAS SUFFICIENT ICE AND IS APPLIED TO LEFT HIP. PATIENT HAS SCDS IN USE. PATIENT IS WEARING HOME CPAP. PATIENT DENIES ANY FURTHER NEEDS. CALL LIGHT IN REACH.
--- NOTE | 2024-11-08 06:46 | NUR ---
PT RESTING QUIETLY. DENIES NEEDS. CMS INTACT. POLAR CARE IN PLACE.
--- NOTE | 2024-11-08 07:20 | NUR ---
REPORT RECEIVED FROM ELECTROMYOGRAPHIC TECHNICIAN RN. PATIENT RESTING IN BED WITH CPAP IN USE. RESPIRATIONS EVEN AND UNLABORED. CALL LIGHT WITHIN REACH.
--- NOTE | 2024-11-08 07:39 | NUR ---
THIS STUDENT NURSE AND PRIMARY RN RECEIVED REPORT FROM SHOE STAINER NURSE. PATIENT RESTING COMFORTABLY, NOTED CHEST RISE AND FALL, EYES CLOSED. CPAP IN PLACE.
--- NOTE | 2024-11-08 08:31 | NUR ---
Board has been updated and call light has been placed within reach. Assisted patient from bed to bathroom to recliner chair. Cyro cuff has been placed. No further requests at this time
--- NOTE | 2024-11-08 08:31 | NUR ---
PATIENT RESTING IN RECLINER. EATING BREAKFAST DENIES ANY PAIN AT THIS TIME. SPICA DRESSING APPEARS TO BE CDI. KELLY HOSE IN PLACE. POSITIVE CMS TO BLLE. LUNGS CTA, BOWEL TONES ACTIVE X 4 QUADRANTS. AM MEDICATIONS ADMINSTERED. IV SITES PATENT AND WNL. CRYO CUFF IN PLACE AND REFILLED. FRESH ICE WATER GIVEN. PATIENT WITH NO FURTHER NEEDS CALL LIGHT WITHIN REACH.
--- NOTE | 2024-11-08 09:45 | NUR ---
RN IN ROOM WITH STUDENT NURSE. PATIENT REQUESTING ITEMS TO COMPLETE ORAL CARE. ITEMS GIVEN. NO FURTHER NEEDS. CALL LIGHT WITHIN REACH.
--- NOTE | 2024-11-08 09:48 | NUR ---
PATIENT RESTING COMFORTABLY IN BED. PATIENT DENIES PAIN AT THIS TIME. DENTURE CARE SUPPLIES PROVIDED PER PATIENT REQUEST. CALL LIGHT IN REACH.
--- NOTE | 2024-11-08 11:32 | NUR ---
IN TO ROUND ON PATIENT. PATIENT REQUESTING DIET CRANBERRY JUICE. JUICE GIVEN. PATIENT WITH NO FURTHER NEEDS. CALL LIGHT WITHIN REACH.
--- NOTE | 2024-11-08 12:15 | NUR ---
PATIENT RESTING IN RECLINER EATING LUNCH. NO NEEDS AT THIS TIME. CALL LIGHT WITHIN REACH.
--- NOTE | 2024-11-08 13:45 | NUR ---
PATIENT RESTING IN BED TALKING ON PHONE. DENIES ANY NEEDS AT THIS TIME. CALL LIGHT WITHIN REACH.
--- NOTE | 2024-11-08 17:28 | NUR ---
PATIENT RESTING IN BED. EATING DINNER. DENIES ANY PAIN AT THIS TIME. SPICA DRESSING IN PLACE NO NEW DRAINAGE NOTED. KELLY HOSE ON, FOOT PUMPS IN PLACE. POSITIVE CMS TO BLLE. NOTED MILD EDEMA TO RLE, +1 EDEMA TO LEFT HIP THROUGH LEFT THIGH AREA. PATIENT DENIES ANY NEEDS AT THIS TIME. CALL LIGHT WITHIN REACH.
--- NOTE | 2024-11-08 18:21 | NUR ---
NOTED THAT PATIENT'S SPICA DRESSING WAS VERY DISPLACED. NOTED DARK BROWN DRAINAGE ON PATIENT CHUCKS PAD. NO DRAINAGE NOTED ON ABD PADS. IT APPEARS THOUGH DRAINAGE IS LEAKING FROM PROXIMAL MOST SURGIAL DRESSING. DRESSING IS A VERY SLOW LEAKAGE OF DARK BROWN FLUID. NOTIFIED. NO NEW ORDERS.
--- NOTE | 2024-11-08 19:29 | NUR ---
RECEIVED REPORT FROM ANNMARIE BARBOZA. PT RESTING IN BED. DENIES PAIN, REPORTS FEELING GOOD. CALL LIGHT WITHIN REACH.
--- NOTE | 2024-11-08 20:00 | NUR ---
PT RESTING COMFORTABLY IN BED. DENIES PAIN. VSS. LSC, C-PAP SETUP AT BEDSIDE. HRR. BTA. LBM TODAY. VOIDS WNL. CMS INTACT. LEFT HIP 1+ EDEMA. LEFT HIP DRSG CDI. DORSI/PLANTAR MS STRONG. KELLY HOSE AND AV FOOT PUMPS IN PLACE TO BLE. RW SL WNL. CRANBERRY JUICE AND FRESH ICE WATER PROVIDED. DENIES ANY FURTHER NEEDS AT THIS TIME.
--- NOTE | 2024-11-08 21:25 | NUR ---
call light answered, pt up sba with fww to bathroom, voided 400mls yellow urine and small-medium bm. pt back in bed, scd's and goldy hose in place. some assistance provided with frandy care following bm. pt steady on feet, home cpap in place. no needs or concerns verbalized, call light in reach.
--- NOTE | 2024-11-08 22:30 | NUR ---
PT SLEEPING, C-PAP IN PLACE.
[2024-11-09] VITALS (9 sets, daily range): BP systolic 103–133; BP diastolic 43–62
--- NOTE | 2024-11-09 00:45 | NUR ---
SLEEPING SOUNDLY. C-PAP IN PLACE.
--- NOTE | 2024-11-09 02:52 | NUR ---
PT SLEEPING SOUNDLY, C-PAP IN PLACE.
--- NOTE | 2024-11-09 06:40 | NUR ---
PT AWAKE, SLEEPING BETWEEN CARE. C-PAP IN PLACE. DENIES PAIN. CMS INTACT. LEFT HIP DRSG CDI. DENIES NEEDS AT THIS TIME.
--- NOTE | 2024-11-09 07:19 | NUR ---
VERBAL REPORT RECEIVED FROM ANNMARIE HARTMAN. PT RESTS IN BED WITH EYES CLOSED, RESP EVEN AND UNLABORED.
--- NOTE | 2024-11-09 08:26 | NUR ---
Board has been updated and call light has been placed within reach, patient is ready for breakfeast
--- NOTE | 2024-11-09 10:02 | NUR ---
REMOVED SPICA AND CHANGED ACTICOAT PER DR HENDERSON VERBAL ORDER. PT NOW HAS DEPENDS IN PLACE. WOUND BASE WAS WELL APPROX. THOUGH SOME STERI STRIPS CAME OFF WITH DRESSING. NO BLEEDING NOTED. PT WAS ABLE TO STAND THROUGH ENTIRE CHANGE AND TOLERATED WELL.
--- NOTE | 2024-11-09 14:03 | NUR ---
PT RESTS IN BED, AWAKE AND ALERT, WATCHES TV. DENIES PAIN AT THIS TIME. SMALL AMOUNT OF NEW SEROUS DRAINAGE NOTED ON LEFT HIP DRESSING. CALL LIGHT IN REACH. NO REQUESTS AT THIS TIME.
--- NOTE | 2024-11-09 18:51 | NUR ---
PT RESTS IN BED AWAKE AND ALERT, WATCHES TV, CALL LIGHT IN REACH, DENIES ANY NEEDS AT THIS TIME.
--- NOTE | 2024-11-09 19:35 | NUR ---
REPORT RECEIVED FROM ANNMARIE GARCIA. pt RESTING IN BED AWAKE WATCHING TV. DENIES PAIN. DENIES ANY NEEDS. CALL LIGHT IN REACH.
--- NOTE | 2024-11-09 21:20 | NUR ---
PATIENT CALLED TO USE THE BATHROOM. 1 PA USING WALKER. PATIENT HAD A LARGE SOFT BM AND 300ML YELLOW URINE. PATIENT'S PULL UP CHANGED. PATIENT IS BACK IN BED. V/S AND I&O'S COMPLETED AND CHarted. CRYO REFILLED. ICE WATER REFRESHED. SCD AND CRYO CUFF IN PLACED. CALL LIGHT AND SIDE TABLE WITHIN REACH.
--- NOTE | 2024-11-09 21:51 | NUR ---
PT IN BED, WATCHING TV, TOOK MEDS W/O PROBLEMS. PUDING,GRANOLA BARS AND FRESH WATER GIVEN ON REQUESTS, DENIES NEED FOR PAIN MEDS OTHER THAN SCHEDULED ONE GIVEN.
--- NOTE | 2024-11-09 22:54 | NUR ---
IN TO CHECK ON pt. RESTING IN BED WITH CPAP ON. ASSESSMENT COMPLETE. DRESSING CDI ON LEFT HIP. KELLY BRIGGS, VFPs, CRYO CUFF WITH ICE IN PLACE. pt DENIES PAIN. CSM INTACT BLE. pt DENIES TOILETING OR ADDITIONAL NEEDS. CALL LIGHT IN REACH.
--- NOTE | 2024-11-10 01:20 | NUR ---
CHECKED ON pt. RESTING IN BED WITH CPAP ON. BREATHING UNLABORED. NO DISTRESS NOTED.
--- NOTE | 2024-11-10 04:01 | NUR ---
pt RESTING IN BED WITH EYES CLOSED, HOME CPAP ON. BREATHING UNLABORED. NO DISTRESS NOTED.
[2024-11-10 05:40] VITALS: BP 155/80
--- NOTE | 2024-11-10 05:40 | NUR ---
pt AWAKE, ASSISTED TO RESTROOM, SBA FOR VOID AND SMALL FORMED BM. pt BACK TO BED, MINIMAL ASSIST BY STAFF TO GET pt'S LEGS IN BED. KELLY HOSE, VFPs, CRYO CUFF WITH ICE IN PLACE. DRESSING CDI, SMALL DRIED AREA OF RED DRAINAGE ON ACTICOAT. pt DENIES PAIN. VSS. ICE WATER REFILLED. IV SL WNL. CALL LIGHT IN REACH. HOME CPAP BACK ON.
[2024-11-10 06:33] VITALS: BP 155/80
[2024-11-10 07:54] VITALS: BP 142/61
[2024-11-10 08:10] VITALS: BP 142/61
--- NOTE | 2024-11-10 08:10 | NUR ---
PT SITTING UP IN BED EATING BREAKFAST. PT EXPRESSES NO CURRENT PAIN AND IS EXCITED TO BE DC TODAY. PT CALL LIGHT WTIHIN REACH.
--- NOTE | 2024-11-10 08:53 | NUR ---
SBA to bathroom. Patient brushed their teeth and applied make up. Returned to bed once done.
--- NOTE | 2024-11-10 09:15 | NUR ---
IMM LETTER COMPLETED AT 0920. PATIENT ALERT AND ORIENTED. PATIENT STATES "I AM GETTING OUT OF HERE TODAY." PT REQUESTED HOME HEALTH. DENIES ANY OTHER CASE MANAGEMENT NEEDS AT THIS TIME.
--- NOTE | 2024-11-10 11:09 | NUR ---
CHART SENT TO [facility]
--- NOTE | 2024-11-10 11:29 | NUR ---
Bed bath supplies given. Patient got dressed to be ready for discharge.
--- NOTE | 2024-11-10 12:00 | NUR ---
PT RECIEVED DC INTRUCTIONS [facility] FOR POST OP INCISION. PT GIVEN CURRENT [facility] NUMBER FOR HOME HEALTH/PT. PT SITTING IN CHAIR DRESSED IN THEIR OWN CLOTHES. PT IS WAITING FOR PHARMACY AND THE WILL BE PICKED UP BY HER AT 1300. PT CURRENTLY HAS IV INTACT UNTIL SHE IS DC'D. PT CALL LIGHT WITHIN REACH.
[2024-11-10 12:42] VITALS: BP 110/42
--- NOTE | 2024-11-10 13:10 | NUR ---
PT DC'D FROM MED/SURG FLOOR. PT CAME AND TOOK HER VIA PERSONAL VEHICLE. PT BELONGINGS GIVEN TO PT WELL DISCHARGE INFORMATION/EDUCATION. PT HAD NO FURTHER QUESTIONS ABOUT CARE MOVING FORWARD.
== END 2024-11-10 12:54 | disposition home or self-care (01) | DRG 470 ==
LOC: MS 11-03 06:09 → DSVR 11-03 06:09 → MS 11-03 17:10
PROVIDERS: ADMIT Specialist; ATTEND Specialist
PROC: 30233N1 Transfusion of Nonautologous Red Blood Cells into Peripheral Vein, Percutaneous Approach (ICD-10-PCS; 2024-11-03)
PROC: 8E0Y0CZ Robotic Assisted Procedure of Lower Extremity, Open Approach (ICD-10-PCS; principal; 2024-11-03 07:00)
PROC: 0SRB0JZ Replacement of Left Hip Joint with Synthetic Substitute, Open Approach (ICD-10-PCS; principal; 2024-11-03 07:00)
DX: M16.12 Unilateral primary osteoarthritis, left hip (principal); Z96.641 Presence of right artificial hip joint; Z96.652 Presence of left artificial knee joint; M70.62 Trochanteric bursitis, left hip; G47.30 Sleep apnea, unspecified; Z85.828 Personal history of other malignant neoplasm of skin; Z98.890 Other specified postprocedural states; Z87.81 Personal history of (healed) traumatic fracture; Z90.710 Acquired absence of both cervix and uterus; Z98.42 Cataract extraction status, left eye; Z79.899 Other long term (current) drug therapy; Z79.890 Hormone replacement therapy; Z79.891 Long term (current) use of opiate analgesic; Z88.5 Allergy status to narcotic agent
CPT/HCPCS: 01214; 36415; 36430; 51798; 72170; 80053; 85025; 85060; 85610; 85730; 86850; 86900; 86901; 86922; 97110; 97116; 97161; 97165; 97530; 97535; A9270; C1713; C1776; J0461; J0690; J1100; J1885; J2003; J2250; J2405; J2704; J2765; J3010; J3490; J7121; P9016

== ENCOUNTER 2024-11-20 11:16 | Observation (INO) | payer MEDICARE ==
[~2024-11-20] VITALS: Ht 154.9 cm; Wt 77.8 kg
[2024-11-20] VITALS (7 sets, daily range): BP systolic 113–130; BP diastolic 46–55
[~2024-11-20 11:16] MED LIST: ACETAMINOPHEN500 MG PO; ASPIRIN325 MG PO; ATORVASTATIN CA80 MG PO; BAYER CHEWABLE81 MG PO; CEFUROXIME250 MG PO; CELECOXIB200 MG PO; COREG3.125 MG PO; EPIPEN 2-P0.3 MG/0.3 IM; GABAPENTIN ER600 MG PO; GABAPENTIN300 MG PO; LASIX20 MG PO; LEVOTHYROXINE125 MCG PO; MULTI VITAMIN1 EACH PO; OMEPRAZOLE20 MG PO; PAXIL10 MG PO; POTASSIUM CHLO10 MEQ PO; TRAMADOL HCL50 MG PO; TRIAMTERENE-HC1 EAC1 PO; VITAMIN C500 M1 PO; VITAMIN D325 MCG PO; ZESTRIL5 MG PO
[2024-11-20] MEDS ORDERED: GABAPENTIN600 MG PO (11:45)
[2024-11-20] MEDS ORDERED: OXYCODONE HCL 5 MG TAB PO PRN (12:00)
[2024-11-20] MEDS ORDERED: LACTATED RINGER'S 1,000 ML IV SCH (12:00)
[2024-11-20] MEDS ORDERED: CEFAZOLIN SODIUM 2 GM/20 ML SYR IV SCH (14:00)
[2024-11-20] MEDS ORDERED: CARVEDILOL3.125 MG PO (14:45)
[2024-11-20] MEDS ORDERED: DICLOFENAC SODI75 MG PO (14:52)
[2024-11-20] MEDS ORDERED: GABAPENTIN 300 MG CAP PO SCH (15:00)
[2024-11-21] VITALS (13 sets, daily range): BP systolic 123–144; BP diastolic 52–70
[2024-11-21] MEDS ORDERED: TRANEXAMIC ACID IN NACL,ISO-OS 1,000 MG/100 ML PIGGYBACK IV SCH ×2 (07:00→12:20)
[2024-11-21] MEDS ORDERED: TRANEXAMIC ACID 2,000 MG in SODIUM CHLORIDE 0.9% 100 ML IV SCH (07:00)
[2024-11-21] MEDS ORDERED: fentaNYL citrate 100 MCG/2 ML VIAL ONE (08:39)
[2024-11-21] MEDS ORDERED: KETAMINE in NS 50 MG/5 ML SYR ONE (08:39)
[2024-11-21] MEDS ORDERED: dexmedeTOMIDine HCl 200 MCG/2 ML VIAL ONE (08:40)
[2024-11-21] MEDS ORDERED: LIDOCAINE HCL 2% 5 ML SDV ONE (08:40)
[2024-11-21] MEDS ORDERED: propofoL 200 MG/20 ML VIAL ONE ×2 (08:40→08:52)
[2024-11-21] MEDS ORDERED: DEXAMETHASONE SOD PHOS 4 MG/ML VIAL ONE (08:42)
[2024-11-21] MEDS ORDERED: ondansetron HCL 4 MG/2 ML VIAL ONE (08:42)
[2024-11-21] MEDS ORDERED: ACETAMINOPHEN 1,000 MG/100 ML VIAL ONE (08:47)
[2024-11-21] MEDS ORDERED: ROCURONIUM BROMIDE 50 MG/5 ML SYR ONE (08:47)
[2024-11-21] MEDS ORDERED: LEVOTHYROXINE SODIUM 125 MCG TAB PO SCH (09:00)
[2024-11-21] MEDS ORDERED: GLYCOPYRROLATE 1 MG/5 ML MDV ONE (09:14)
[2024-11-21] MEDS ORDERED: SUGAMMADEX SODIUM 200 MG/2 ML ML ONE (09:26)
[2024-11-21] MEDS ORDERED: fentaNYL citrate 50 MCG/ML SDV IV PRN (09:45)
[2024-11-21] MEDS ORDERED: IBLOOD GLUCOSE TEST STRIP 1 EA TEST VI PRN (09:45)
[2024-11-21] MEDS ORDERED: ondansetron HCL 4 MG/2 ML VIAL IV PRN ×2 (09:45→12:30)
[2024-11-21] MEDS ORDERED: NALOXONE HCL 0.4 MG SYR IV PRN (09:45)
[2024-11-21] MEDS ORDERED: KETOROLAC TROMETHAMINE 30 MG/ML VIAL IV PRN (10:30)
--- NOTE | 2024-11-21 10:41 | OR ---
[facility] [address], [place] [address] Signed DATE OF OPERATION: 11/21/2024 SURGEON: Crystal Stratton MD PREOPERATIVE DIAGNOSIS: Hematoma, left hip, status post total hip replacement. POSTOPERATIVE DIAGNOSIS: Hematoma, left hip, status post total hip replacement. PROCEDURE PERFORMED: Irrigation and debridement, left skin and subcutaneous tissue. TERRAZZO FINISHER: Deana Mason. Deana was present and critical for all portions of the procedure. ANESTHESIA: General. BLOOD LOSS: 100 mL. INDICATIONS FOR THE PROCEDURE: Ronda is an 79-year-old female, who underwent total hip arthroplasty about two weeks ago. She had some bleeding postoperatively and then it dried up; however, she started oozing from the wound again and we elected to wash this out to remove the hematoma. Risks, benefits, and alternatives of surgery were discussed with her and she elected to proceed. PROCEDURE IN DETAIL: Once consent was obtained, she was taken to the operating room. After adequate anesthesia, she was placed on the operating room table in the right lateral decubitus position. All downside pressure points were well padded. Axillary roll was placed. The hip was prepped and draped in a standard sterile fashion. There was no cellulitis or indication of infection preoperatively. The incision was opened up through its full length and dissection was taken down to the IT band, which was dehisced. The underlying abducted repair was intact. There was a small hole distally in the vastus repair. There was a large amount of clot, probably 300 mL with a clot that was evacuated. We then used pulse irrigation to remove the remainder of the clot and clean the tissue. We were unable to locate any significant bleeders. A couple of small oozing areas were Electronically Signed By: CRYSTAL STRATTON MD 11/21/24 1041 PATIENT NAME: RONDA NOEL OPERATIVE REPORT DATE OF : 41 REPORT #: [id number] PHYSICIAN: CRYSTAL STRATTON MD PCP: OTHER PCP REPORT IS CONFIDENTIAL AND NOT TO BE RELEASED WITHOUT AUTHORIZATION [facility] [address], [place] [address] Signed cauterized. There was no significant bleeding once we were completed. The wound was then copiously irrigated with the pulse financial sales advisor one more time. We then soaked it with the Surgiphor for 3 minutes and washed it out again with normal saline. Once this was completed, the vastus was closed using #2 FiberWire and #2 StrataFix. The IT band was closed once again with #2 FiberWire and #2 StrataFix. Subcutaneous tissue was closed in layers using 2-0 Monocryl and 0-Stratafix. The skin was then closed with harpal. The wound was then dressed with a [employer] wound VAC and she was awakened and taken to the recovery room in satisfactory condition. All sponge, needle, and instrument counts were correct. Crystal Stratton MD BA/NATTY /[id number] Copies: ~ Electronically Signed By: CRYSTAL STRATTON MD 11/21/24 1041 PATIENT NAME: RONDA NOEL OPERATIVE REPORT DATE OF : 41 REPORT #: [id number] PHYSICIAN: CRYSTAL STRATTON MD PCP: OTHER PCP REPORT IS CONFIDENTIAL AND NOT TO BE RELEASED WITHOUT AUTHORIZATION
[2024-11-21] MEDS ORDERED: HYDROmorphone HCL 1 MG/ML SYR IV PRN (12:30)
[2024-11-21] MEDS ORDERED: HYDROmorphone HCL 2 MG TAB PO PRN (13:15)
[2024-11-21] MEDS ORDERED: SCOPOLAMINE 1 MG/3 DAYS PATCH 1 EACH TDSY TD SCH (16:00)
[2024-11-21] MEDS ORDERED: PROCHLORPERAZINE EDISYLATE 10 MG/2 ML VIAL IV PRN (16:00)
[2024-11-22] VITALS (11 sets, daily range): BP systolic 121–131; BP diastolic 49–58
[2024-11-22 05:28] LABS: BASOPHILS 0.8 % (0-2); EOSINOPHILS 0.1 % (0-6); HEMATOCRIT 27.9 % (35.0-50.0); HEMOGLOBIN 9.5 g/dL (12.0-18.0); LYMPHOCYTES 18.7 % (24-44); MCH 32.1 (27-36); MCHC 34.2 g/dl (30-36); MCV 93.8 fl (81-99); MONOCYTES 10.6 % (0-12); NEUTROPHILS 69.8 % (39-80); PLATELET COUNT 627 K/uL (140-440); RBC 2.97 M/ul (4.3-5.7); RDW 15.6 (10.5-15.0)
[2024-11-22 05:39] LABS: ANION GAP 10.1 (7-21); BUN/CREATININE RATIO 18.66 (6.0-28.6); CALCIUM 9.4 mg/dL (8.5-10.1); CREATININE, SERUM 0.75 mg/dL (0.55-1.02); POTASSIUM 4.1 mmol/L (3.5-5.1)
[2024-11-22] MEDS ORDERED: Rivaroxaban 10 MG TAB PO SCH (08:00)
[2024-11-23 01:20] VITALS: BP 138/57
[2024-11-23 04:35] VITALS: BP 127/56
[2024-11-23 07:04] VITALS: BP 127/56
[2024-11-23] MEDS ORDERED: HYDROMORPHONE HC2 MG PO (07:58)
[2024-11-23 10:26] VITALS: BP 127/56
== END 2024-11-23 10:56 | disposition home or self-care (01) ==
LOC: MS 11:16
PROVIDERS: ADMIT Specialist; ATTEND Specialist
PROC: 0JBM0ZZ Excision of Left Upper Leg Subcutaneous Tissue and Fascia, Open Approach (ICD-10-PCS; principal; 2024-11-21 09:15)
DX: L76.32 Postprocedural hematoma of skin and subcutaneous tissue following other procedure (principal); I50.9 Heart failure, unspecified; G47.30 Sleep apnea, unspecified; Z88.5 Allergy status to narcotic agent; Z88.8 Allergy status to other drugs, medicaments and biological substances; Z96.649 Presence of unspecified artificial hip joint; Z91.038 Other insect allergy status; Z91.030 Bee allergy status; Z79.899 Other long term (current) drug therapy; Y83.8 Other surgical procedures as the cause of abnormal reaction of the patient, or of later complication, without mention of misadventure at the time of the procedure
CPT/HCPCS: 00400; 36415; 80048; 85025; 94762; 96374; 96375; 96376; 97161; 97530; A9270; G0378; J0131; J0690; J0780; J1100; J1171; J2003; J2405; J2704; J3010; J3490; J7121